=== PATIENT | male | born 1965 | race Caucasian/White ===

== ENCOUNTER 2016-08-09 14:24 | Observation (INO) | payer BC, OTHER ==
[2016-08-09 14:55] VITALS: BMI 36.4
--- NOTE | 2016-08-09 15:19 | PDOC ---
History of Present Illness - History of Present Illness Initial Comments: 08/09/16 16:19 The patient is a 51 year old male with a past medical hx of gout, left lung mass biopsy (2015) who presents to the ED from his PCP complaining of intermittent epigastric and lower chest pain for two days. The patient reports two episodes of associated shortness of breath. He describes the pain as a tightness and notes the pain lasts for 15 minutes. The patient denies any radiation of pain into his jaw, back, or arm. The patient is also complaining of a rash to his lower left back but denies any pain or tingling. The patient denies any nausea, vomiting, diarrhea The patient denies any fever, chills PCP: Dr. Larios Surgery: lower back surgery 2013 <Kaley Sanchez - Last Filed: 08/09/16 16:29> <Ellen Armenta - Last Filed: 08/09/16 17:28> - General Chief Complaint: Nausea/Vomiting Stated Complaint: PCP SENT FOR ADMIN Time Seen by Provider: 08/09/16 15:04 Past History <Kaley Sanchez - Last Filed: 08/09/16 16:29> - Past Medical History Anemia: No Asthma: No Cancer: No Cardiac Disorders: No CVA: No COPD: No CHF: No Dementia: No Diabetes: No GI Disorders: No Disorders: No HTN: No Hypercholesterolemia: No Liver Disease: No Seizures: No Thyroid Disease: No - Surgical History Abdominal Surgery: No Appendectomy: No Cardiac Surgery: No Cholecystectomy: No Lung Surgery: No Neurologic Surgery: Yes (HERNIATED DISC SX 2013) Orthopedic Surgery: No - Immunization History Immunization Up to Date: Yes - Psycho/Social/Smoking Cessation Hx Anxiety: No Suicidal Ideation: No Smoking Status: No Smoking History: Never smoked Have you smoked in the past 12 months: No Number of Cigarettes Smoked Daily: 0 Cigars Per Day: 0 Information on smoking cessation initiated: No Hx Alcohol Use: No Drug/Substance Use Hx: No Substance Use Type: None <Ellen Armenta - Last Filed: 08/09/16 17:28> - Past Medical History Allergies/Adverse Reactions: Allergies Allergy/AdvReac Type Severity Reaction Status Date / Time No Known Allergies Allergy Verified 08/09/16 14:55 Home Medications: Ambulatory Orders NK [No Known Home Medication] 08/09/16 Review of Systems - Review of Systems Able to Perform ROS?: Yes Comments:: 08/09/16 16:19 GENERAL/CONSTITUTIONAL: No: fever, chills, weakness, loss of appetite. HEAD, EYES, EARS, NOSE AND THROAT: No: change in vision, ear pain, discharge, sore throat, throat swelling. CARDIOVASCULAR: +Lower chest pain. No: lightheadedness, palpitations, syncope RESPIRATORY: No: cough, shortness of breath, wheezing, hemoptysis, stridor. GASTROINTESTINAL: +Epigastric pain. No: nausea, vomiting, diarrhea, rectal bleeding, constipation. GENITOURINARY: No: dysuria, hematuria, frequency, urgency, flank pain. MUSCULOSKELETAL: No: back pain, neck pain, jaw pain, arm pain, joint pain, muscle swelling or pain SKIN:+Rash to left lower back. No: lesions, pallor or easy bruising. NEUROLOGIC: No: headache, vertigo, paresthesias, weakness ENDOCRINE: No: unexplained weight gain or loss HEMATOLOGIC/LYMPHATIC: No: anemia, easy bleeding, swelling nodes <Kaley Sanchez - Last Filed: 08/09/16 16:29> *Physical Exam - Vital Signs Last Vital Signs Temp Pulse Resp BP Pulse Ox 84 18 150/92 100 08/09/16 14:52 08/09/16 14:52 08/09/16 14:52 08/09/16 14:52 - Physical Exam Comments: 08/09/16 16:20 GENERAL: The patient is in no acute distress. HEAD: Normal with no signs of trauma. EYES: PERRLA, EOMI, sclera anicteric, conjunctiva clear. ENT: Ears normal, nares patent, oropharynx clear without exudates. Moist mucous membranes. NECK: Normal range of motion, supple without lymphadenopathy, JVD, or masses. LUNGS: Breath sounds equal, clear to auscultation bilaterally. No wheezes, and no crackles. HEART:Regular rate and rhythm, normal S1 and S2 without murmur, rub or gallop. ABDOMEN: Soft, nontender, normoactive bowel sounds. No guarding, no rebound. EXTREMITIES: Normal range of motion, no edema. No clubbing or cyanosis. No erythema, or tenderness. NEUROLOGICAL: Cranial nerves II through XII grossly intact. Normal speech. No focal neurological deficits. MUSCULOSKELETAL: Back nontender to palpation, no CVA tenderness SKIN: +Erythematous macular lesions on the right lower back. Warm, Dry, normal turgor, no lesions noted. <Kaley Sanchez - Last Filed: 08/09/16 16:29> - Vital Signs Last Vital Signs Temp Pulse Resp BP Pulse Ox 84 18 150/92 100 08/09/16 14:52 08/09/16 14:52 08/09/16 14:52 08/09/16 14:52 <Ellen Armenta - Last Filed: 08/09/16 17:28> Heart Score/ECG Review - History History: Slightly suspicious - Electrocardiogram EKG: Non specific repolarization disturbance - Age Age: 45-65 #1 ECG reviewed & interpreted by me at: 15:18 08/09/16 15:18 Twelve-lead EKG was performed and reviewed by me. There is normal sinus rhythm with a normal rate of 94bpm. The axis is normal. The intervals are normal - pr: 162ms, QRS:100ms, QTc:425ms. J point elevation v2, v3. <Ellen Armenta - Last Filed: 08/09/16 17:28> ED Treatment Course - LABORATORY CBC & Chemistry Diagram: 08/09/16 15:15 08/09/16 15:15 - ADDITIONAL ORDERS Additional order review: Laboratory Results 08/09/16 08/09/16 08/09/16 15:15 15:15 15:15 INR 1.04 PTT (Actin FS) 33.5 Sodium 143 Potassium 4.2 Chloride 106 Carbon Dioxide 28 Anion Gap 9 BUN 14 Creatinine 1.1 Creat Clearance w eGFR > 60 Random Glucose 99 Calcium 8.8 Total Bilirubin 0.2 AST 18 ALT 30 Alkaline Phosphatase 111 Creatine Kinase 186 Creatine Kinase Index 1.5 CK-MB (CK-2) 2.828 CK-MB (CK-2) Rel Index Cancelled Troponin I < 0.02 Total Protein 6.9 Albumin 3.9 08/09/16 15:15 RBC 5.26 MCV 84.6 MCHC 34.4 RDW 13.6 MPV 8.6 Neutrophils % 62.5 Lymphocytes % 27.0 Monocytes % 7.5 Eosinophils % 2.2 Basophils % 0.8 - RADIOLOGY Radiograph Interpretation: 08/09/16 16:29 Chest X-Ray Single AP view of the chest reveals little change since the prior set 12/14/2015. There are clear lungs, semierect apical lordotic projection, normal mediastinum and sharp angles. The bones and soft tissues are intact. Impression: No acute pathology. No significant change. Reported By: Adrián Peña MD 08/09/16 1535 <Kaley Sanchez - Last Filed: 08/09/16 16:29> - LABORATORY CBC & Chemistry Diagram: 08/09/16 15:15 08/09/16 15:15 - RADIOLOGY Radiology Studies Ordered: Category Date Time Status EVETTE [CHEST X-RAY PORTABLE*] [RAD] Stat Radiology 08/09/16 15:04 Ordered <Ellen Armenta - Last Filed: 08/09/16 17:28> Medical Decision Making - Medical Decision Making 08/09/16 17:03 A portion of this note was documented by scribe services under my direction. I have reviewed the details of the note, within reason, and agree with the documentation with the following case summary and management plan written by me. Nursing documentation reviewed and incorporated into medical decision making This is a 51-year-old male who presents emergency Department with 2 episodes of chest tightness. 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 Symptoms lasted approximately 15 minutes and self resolved. Patient's denies exertional symptoms historically. No prior cardiac symptoms, cardiac work up. No diaphoresis. No nausea, no vomiting patient denies lower extremity edema. Patient was seen today by his primary care physician who referred him to the emergency department for observation admission for repeat troponins. Will do labs Will do chest x-ray Will reassess (pt has had no chest pain) 08/09/16 17:05 Laboratory Tests 08/09/16 08/09/16 08/09/16 15:15 15:15 15:15 WBC 9.8 Hgb 15.3 Hct 44.5 Plt Count 205 Neutrophils % 62.5 Lymphocytes % 27.0 INR 1.04 BUN 14 Creatinine 1.1 Creatine Kinase 186 Troponin I < 0.[address] Becerra Awaiting response Will place on observation 08/09/16 17:[address] Ace <Ellen Armenta - Last Filed: 08/09/16 17:28> *DC/Admit/Observation/Transfer - Attestations Scribe Attestion: 08/09/16 16:19 Documentation prepared by Kaley Sanchez, acting as medical numerical control operator for Ellen Armenta MD/DO. <Kaley Sanchez - Last Filed: 08/09/16 16:29> - Discharge Dispostion Admit: Yes Decision to Admit order Date/Time: 08/09/16 17:05 <Ellen Armenta - Last Filed: 08/09/16 17:28> Diagnosis at time of Disposition: Chest pain Qualifiers: Chest pain type: unspecified Qualified Code(s): R07.9 - Chest pain, unspecified - Discharge Dispostion Condition at time of disposition: Stable - Referrals Referrals: Sravanthi Terrazas MD [Primary Care Provider] -
[2016-08-09 15:28] LABS: BASOPHIL 0.8 % (0-2.0); EOSINOPHIL 2.2 % (0-4.5); MCH 29.1 pg (25.7-33.7); MCHC 34.4 g/dl (32.0-35.9); MEAN CELL VOLUME 84.6 fl (80-96); MEAN PLT VOLUME 8.6 fl (7.5-11.1); NEUTROPHILS 62.5 % (42.8-82.8); PLATELET COUNT 205 K/MM3 (134-434); RDW 13.6 % (11.9-15.9); WHITE BLOOD COUNT 9.8 K/mm3 (4.0-10.0)
[2016-08-09 15:44] LABS: INR 1.04 (0.82-1.09); PROTHROMBIN TIME (PATIENT) 11.5 SEC (9.98-11.88)
[2016-08-09 15:46] LABS: ACTIVATED PTT 33.5 SECONDS (26.9-34.4)
[2016-08-09 15:47] LABS: ALBUMIN 3.9 g/dl (3.4-5.0); ANION GAP 9 (8-16); BILIRUBIN,TOTAL 0.2 mg/dL (0.2-1.0); CALCIUM 8.8 mg/dL (8.5-10.1); CO2 28 mmol/L (21-32); CREATININE 1.1 mg/dL (0.7-1.3); GLUCOSE,RANDOM 99 mg/dL (74-106); SGPT/ALT 30 U/L (12-78); TOT PROT 6.9 g/dl (6.4-8.2)
[2016-08-09 15:50] LABS: ALK PHOS 111 U/L (45-117); SGOT/AST 18 U/L (15-37); TROPONIN I < 0.02 ng/ml (0.00-0.05)
[2016-08-09] MEDS ORDERED: ASPIRIN 81 MG CHEWABLE TABLETS PO ONE (18:05)
[2016-08-09] MEDS ORDERED: ACETAMINOPHEN 325 MG TABLET (FP) PO PRN (18:05)
[2016-08-09 20:42] LABS: TROPONIN I < 0.02 ng/ml (0.00-0.05)
[2016-08-09] MEDS: ATORVASTATIN CA 10 MG TABLET (FP) PO SCH (21:14)
[2016-08-09] MEDS: HEPARIN NA (PORCINE) 5,000 UNITS/ML 1ML VIAL SQ SCH (21:14)
[2016-08-10 07:02] LABS: MCH 28.9 pg (25.7-33.7); MCHC 33.9 g/dl (32.0-35.9); MEAN CELL VOLUME 85.2 fl (80-96); MEAN PLT VOLUME 8.6 fl (7.5-11.1); PLATELET COUNT 209 K/MM3 (134-434); RDW 13.9 % (11.9-15.9); WHITE BLOOD COUNT 7.9 K/mm3 (4.0-10.0)
[2016-08-10 07:20] LABS: ALBUMIN 3.9 g/dl (3.4-5.0); ALK PHOS 96 U/L (45-117); ANION GAP 5 (8-16); BILIRUBIN,TOTAL 0.4 mg/dL (0.2-1.0); CALCIUM 8.8 mg/dL (8.5-10.1); CHOLESTEROL 184 mg/dL (50-200); CO2 34 mmol/L (21-32); GLUCOSE,RANDOM 103 mg/dL (74-106); LDL CHOLESTEROL (ONLY SJRH) 120 mg/dL (5-100); SGOT/AST 18 U/L (15-37); SGPT/ALT 29 U/L (12-78)
[2016-08-10] MEDS: HEPARIN NA (PORCINE) 5,000 UNITS/ML 1ML VIAL SQ SCH ×2 (09:41→21:46)
[2016-08-10] MEDS: ASPIRIN 81 MG CHEWABLE TABLETS PO SCH (09:41)
--- NOTE | 2016-08-10 11:13 | HP ---
Admitting History and Physical - Primary Care Physician PCP: Shari Larios - Admission Chief Complaint: CHEST PAIN/DYSPNEA History of Present Illness: The patient is a 51 year old male with a past medical hx of gout, left lung mass biopsy (2015) who presents to the ED from his PCP complaining of intermittent epigastric and lower chest pain for two days. The patient reports two episodes of associated shortness of breath. He describes the pain as a tightness and notes the pain lasts for 15 minutes. The patient denies any radiation of pain into his jaw, back, or arm. The patient is also complaining of a rash to his lower left back but denies any pain or tingling. The patient denies any nausea, vomiting, diarrhea The patient denies any fever, chills PCP: Dr. Larios Surgery: lower back surgery 2013 History Source: Patient - Smoking History Smoking history: Never smoked Have you smoked in the past 12 months: No Aproximately how many cigarettes per day: 0 - Alcohol/Substance Use Hx Alcohol Use: No Home Medications - Allergies Allergies/Adverse Reactions: Allergies Allergy/AdvReac Type Severity Reaction Status Date / Time No Known Allergies Allergy Verified 08/09/16 14:55 - Home Medications Home Medications: Ambulatory Orders NK [No Known Home Medication] 08/09/16 Review of Systems - Review of Systems Constitutional: reports: No Symptoms Eyes: reports: No Symptoms HENT: reports: No Symptoms Neck: reports: No Symptoms Cardiovascular: reports: Chest Pain, Shortness of Breath Respiratory: reports: SOB, Wheezing Gastrointestinal: reports: No Symptoms Genitourinary: reports: No Symptoms Breasts: reports: No Symptoms Reported Musculoskeletal: reports: No Symptoms Integumentary: reports: No Symptoms Neurological: reports: No Symptoms Endocrine: reports: No Symptoms Hematology/Lymphatic: reports: No Symptoms Psychiatric: reports: No Symptoms Physical Examination Vital Signs: Vital Signs Temperature 97.5 F L 08/10/16 06:00 Pulse Rate 70 08/10/16 06:00 Respiratory Rate 18 08/10/16 06:00 Blood Pressure 135/91 08/10/16 06:00 O2 Sat by Pulse Oximetry (%) 96 08/10/16 02:04 Constitutional: Yes: Mild Distress Eyes: Yes: WNL HENT: Yes: WNL Neck: Yes: WNL Cardiovascular: Yes: WNL Respiratory: Yes: WNL Gastrointestinal: Yes: WNL Renal/: Yes: WNL Musculoskeletal: Yes: WNL Extremities: Yes: WNL Edema: No Peripheral Pulses WNL: Yes Integumentary: Yes: WNL Wound/Incision: Yes: Clean/Dry Neurological: Yes: WNL ...Motor Strength: WNL Psychiatric: Yes: WNL Labs: CBC, BMP 08/10/16 05:55 08/10/16 05:55 Problem List - Problems (1) Chest pain Code(s): R07.9 - CHEST PAIN, UNSPECIFIED Qualifiers: Chest pain type: unspecified Qualified Code(s): R07.9 - Chest pain, unspecified Assessment/Plan ACUTE CORONARY SYNDROME RULE OUT TELEMETRY OBSERVATION STATUS PER EHR CARDIOLOGY FOR STRESS TEST/ECHO RISK FACTORS DISCUSSED WITH PATIENT
--- NOTE | 2016-08-10 15:26 | CON.CARD ---
Consult Consult Specialty:: Cardiology Referred by:: Dr. Larios Reason for Consultation:: Cardiac evaluation - History of Present Illness Chief Complaint: Chest pain History of Present Illness: Patient is a 51 year old male with recent history of pneumonia which was treated no presents from PMD office for further work up of chest discomfort in the mid-sternum and epigastrium. He has history of gout and had lung biopsy to rule out malignancy (found with pneumonia and no evidence of malignancy). He also complained of shortness of breath. He denies palpitations. He denies paroxysmal nocturnal dyspnea or orthopnea. He denies fever or chills. He denies cough or expectoration. He denies headache or lightheadedness. He states chest discomfort lasted approximately 15 minutes. 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 Cardiology consultation was called for further evaluation. - History Source History Provided By: Patient, Medical Record Limitations to Obtaining History: No Limitations - Past Medical History Pulmonary: Yes: Pneumonia Rheumatology: Yes: Gout - Alcohol/Substance Use Hx Alcohol Use: No - Smoking History Smoking history: Never smoked Have you smoked in the past 12 months: No Aproximately how many cigarettes per day: 0 Home Medications - Allergies Allergies/Adverse Reactions: Allergies Allergy/AdvReac Type Severity Reaction Status Date / Time No Known Allergies Allergy Verified 08/09/16 14:55 - Home Medications Home Medications: Ambulatory Orders NK [No Known Home Medication] 08/09/16 Review of Systems - Review of Systems Constitutional: denies: Chills, Fever Cardiovascular: reports: Chest Pain, Shortness of Breath. denies: Palpitations Respiratory: reports: SOB. denies: Cough, Hemoptysis, Orthopnea, PND Gastrointestinal: denies: Abdominal Pain, Constipation, Diarrhea, Melena, Nausea , Rectal Bleeding, Vomiting Genitourinary: denies: Dysuria Neurological: denies: Dizziness, Headache, Numbness, Seizure, Syncope Vital Signs: Vital Signs Temperature 98.0 F 08/10/16 14:00 Pulse Rate 78 08/10/16 14:00 Respiratory Rate 20 08/10/16 14:00 Blood Pressure 125/61 08/10/16 14:00 O2 Sat by Pulse Oximetry (%) 96 08/10/16 10:00 Neck: Yes: Supple Respiratory: Yes: CTA Bilaterally Gastrointestinal: Yes: Normal Bowel Sounds, Soft. No: Tenderness Cardiovascular: Yes: Regular Rate and Rhythm JVD: No Carotid Bruit: No PMI: Non-Displaced Heart Sounds: Yes: S1, S2 Edema: No - Other Data Labs, Other Data: CBC, BMP 08/10/16 05:55 08/10/16 05:55 INR, PTT INR 1.04 (0.82-1.09) 08/09/16 15:15 Troponin, BNP 08/09/16 19:50 Troponin I < 0.02 Laboratory Results - last 24 hr 08/09/16 08/09/16 08/09/16 15:15 15:15 15:15 WBC 9.8 RBC 5.26 Hgb 15.3 Hct 44.5 MCV 84.6 MCHC 34.4 RDW 13.6 Plt Count 205 MPV 8.6 Neutrophils % 62.5 Lymphocytes % 27.0 Monocytes % 7.5 Eosinophils % 2.2 Basophils % 0.8 INR 1.04 PTT (Actin FS) 33.5 Sodium 143 Potassium 4.2 Chloride 106 Carbon Dioxide 28 Anion Gap 9 BUN 14 Creatinine 1.1 Creat Clearance w eGFR > 60 Random Glucose 99 Hemoglobin A1c % Calcium 8.8 Total Bilirubin 0.2 AST 18 ALT 30 Alkaline Phosphatase 111 Creatine Kinase 186 Creatine Kinase Index 1.5 CK-MB (CK-2) 2.828 CK-MB (CK-2) Rel Index Troponin I < 0.02 Total Protein 6.9 Albumin 3.9 Triglycerides Cholesterol Total LDL Cholesterol HDL Cholesterol 08/10/16 08/10/16 08/10/16 05:55 05:55 05:55 WBC 7.9 RBC 5.42 Hgb 15.7 Hct 46.2 MCV 85.2 MCHC 33.9 RDW 13.9 Plt Count 209 MPV 8.6 Neutrophils % Lymphocytes % Monocytes % Eosinophils % Basophils % INR PTT (Actin FS) Sodium 144 Potassium 4.8 Chloride 105 Carbon Dioxide 34 H D Anion Gap 5 L BUN 13 Creatinine 1.0 Creat Clearance w eGFR > 60 Random Glucose 103 Hemoglobin A1c % 5.9 Calcium 8.8 Total Bilirubin 0.4 D AST 18 ALT 29 Alkaline Phosphatase 96 Creatine Kinase Creatine Kinase Index CK-MB (CK-2) CK-MB (CK-2) Rel Index Troponin I Total Protein 7.0 Albumin 3.9 Triglycerides 111 Cholesterol 184 Total LDL Cholesterol 120 H HDL Cholesterol 57 Sinus rhythm Imaging - Results Chest X-ray: Report Reviewed (Unremarkable) EKG: Report Reviewed Problem List - Problems (1) Chest pain Code(s): R07.9 - CHEST PAIN, UNSPECIFIED Qualifiers: Chest pain type: unspecified Qualified Code(s): R07.9 - Chest pain, unspecified (2) Gout Code(s): M10.9 - GOUT, UNSPECIFIED Qualifiers: Gout site: toe Gout etiology: unspecified cause Laterality: unspecified laterality Chronicity: chronic Presence of tophus: without tophus Qualified Code(s): M1A.9XX0 - Chronic gout, unspecified, without tophus (tophi) (3) Hypercholesterolemia Code(s): E78.0 - PURE HYPERCHOLESTEROLEMIA * DO NOT USE * Assessment/Plan 1. Chest pain syndrome and shortness of breath, rule out CAD 2. History of gout 3. History of pneumonia 4. Hypercholesterolemia PLAN: 1. 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 Transthoracic echocardiography to assess LV and valvular function 3. ASA 4. Statin therapy Further plans are to follow José Miguel Jordan MD
[2016-08-10] MEDS ORDERED: SODIUM CHLORIDE NASAL SPRAY 44 ML BOTTLE NS PRN (17:06)
[2016-08-10] MEDS ORDERED: ARTIFICIAL TEARS (POLYVINYL ALCOHOL 1.4%) OPTH DROPS OU PRN (17:06)
--- NOTE | 2016-08-10 20:27 | EKG ---
Test Reason : Blood Pressure : / mmHG Vent. Rate : 094 BPM Atrial Rate : 094 BPM P-R Int : 162 ms QRS Dur : 100 ms QT Int : 340 ms P-R-T Axes : 055 061 003 degrees QTc Int : 425 ms NORMAL SINUS RHYTHM CANNOT RULE OUT ANTERIOR INFARCT , AGE UNDETERMINED NONSPECIFIC T WAVE ABNORMALITY ABNORMAL ECG NO PREVIOUS ECGS AVAILABLE Confirmed by CALEB JIMENEZ MD ([id number]) on 08/10/2016 8:27:03 PM Referred By: Confirmed By:CALEB JIMENEZ MD
[2016-08-10] MEDS: ATORVASTATIN CA 10 MG TABLET (FP) PO SCH (21:46)
--- NOTE | 2016-08-11 07:58 | PN ---
Progress Note, Physician History of Present Illness: no cp this am - Current Medication List Current Medications: Active Medications Acetaminophen (Tylenol -) 650 mg PO Q6H PRN PRN Reason: FEVER OR PAIN Artificial Tears (Artificial Tears) 1 drop OU BID PRN PRN Reason: DRY EYES Aspirin (Asa -) 81 mg PO DAILY [facility] Last Admin: 08/10/16 09:41 Dose: 81 mg Atorvastatin Calcium (Lipitor -) 10 mg PO HS [facility] Last Admin: 08/10/16 21:46 Dose: 10 mg Heparin Sodium (Porcine) (Heparin -) 5,000 unit SQ BID [facility] Last Admin: 08/10/16 21:46 Dose: 5,000 unit Sodium Chloride ([place] Nasal [place] -) 3 spray NS TID PRN PRN Reason: NASAL CONGESTION - Objective Vital Signs: Vital Signs Temperature 97.6 F 08/11/16 06:00 Pulse Rate 79 08/11/16 06:00 Respiratory Rate 18 08/11/16 06:00 Blood Pressure 154/80 08/11/16 06:00 O2 Sat by Pulse Oximetry (%) 97 08/10/16 22:00 Cardiovascular: Yes: Regular Rate and Rhythm Respiratory: Yes: Regular, CTA Bilaterally Gastrointestinal: Yes: Normal Bowel Sounds, Soft Edema: No Labs: CBC, BMP 08/10/16 05:55 08/10/16 05:55 INR, PTT INR 1.04 (0.82-1.09) 08/09/16 15:15 Problem List - Problems (1) Chest pain Assessment/Plan: ECHO STRESS TEST Code(s): R07.9 - CHEST PAIN, UNSPECIFIED Qualifiers: Chest pain type: unspecified Qualified Code(s): R07.9 - Chest pain, unspecified (2) Gout Assessment/Plan: ASYMPTOMATIC Code(s): M10.9 - GOUT, UNSPECIFIED Qualifiers: Gout site: toe Gout etiology: unspecified cause Laterality: unspecified laterality Chronicity: chronic Presence of tophus: without tophus Qualified Code(s): M1A.9XX0 - Chronic gout, unspecified, without tophus (tophi) (3) Hypercholesterolemia Assessment/Plan: ON LIPITOR 10 Code(s): E78.0 - PURE HYPERCHOLESTEROLEMIA * DO NOT USE *
[2016-08-11] MEDS: HEPARIN NA (PORCINE) 5,000 UNITS/ML 1ML VIAL SQ SCH (10:20)
--- NOTE | 2016-08-11 13:12 | PN ---
Progress Note, Physician Chief Complaint: Not in distress History of Present Illness: Patient was seen and examined. Awake and alert. Chart was reviewed Denies chest pain, SOB or palpitation - Current Medication List Current Medications: Active Medications Acetaminophen (Tylenol -) 650 mg PO Q6H PRN PRN Reason: FEVER OR PAIN Artificial Tears (Artificial Tears) 1 drop OU BID PRN PRN Reason: DRY EYES Aspirin (Asa -) 81 mg PO DAILY [facility] Last Admin: 08/10/16 09:41 Dose: 81 mg Atorvastatin Calcium (Lipitor -) 10 mg PO HS [facility] Last Admin: 08/10/16 21:46 Dose: 10 mg Heparin Sodium (Porcine) (Heparin -) 5,000 unit SQ BID [facility] Last Admin: 08/10/16 21:46 Dose: 5,000 unit Sodium Chloride ([place] Nasal [place] -) 3 spray NS TID PRN PRN Reason: NASAL CONGESTION - Objective Vital Signs: Vital Signs Temperature 97.3 F L 08/11/16 10:00 Pulse Rate 68 08/11/16 10:00 Respiratory Rate 18 08/11/16 10:00 Blood Pressure 132/76 08/11/16 10:00 O2 Sat by Pulse Oximetry (%) 97 08/10/16 22:00 Neck: Yes: Supple Cardiovascular: Yes: Regular Rate and Rhythm, S1, S2 Respiratory: Yes: CTA Bilaterally Gastrointestinal: Yes: Normal Bowel Sounds, Soft. No: Tenderness Edema: No Additional Findings/Remarks: - Review of Systems Constitutional: denies: Chills, Fever Cardiovascular: reports: Chest Pain, Shortness of Breath. denies: Palpitations Respiratory: reports: SOB. denies: Cough, Hemoptysis, Orthopnea, PND Gastrointestinal: denies: Abdominal Pain, Constipation, Diarrhea, Melena, Nausea , Rectal Bleeding, Vomiting Genitourinary: denies: Dysuria Neurological: denies: Dizziness, Headache, Numbness, Seizure, Syncope Labs: CBC, BMP 08/10/16 05:55 08/10/16 05:55 INR, PTT INR 1.04 (0.82-1.09) 08/09/16 15:15 Problem List - Problems (1) Chest pain Code(s): R07.9 - CHEST PAIN, UNSPECIFIED Qualifiers: Chest pain type: unspecified Qualified Code(s): R07.9 - Chest pain, unspecified (2) Gout Code(s): M10.9 - GOUT, UNSPECIFIED Qualifiers: Gout site: toe Gout etiology: unspecified cause Laterality: unspecified laterality Chronicity: chronic Presence of tophus: without tophus Qualified Code(s): M1A.9XX0 - Chronic gout, unspecified, without tophus (tophi) (3) Hypercholesterolemia Code(s): E78.0 - PURE HYPERCHOLESTEROLEMIA * DO NOT USE * Assessment/Plan 1. Chest pain syndrome and shortness of breath, rule out CAD 2. History of gout 3. History of pneumonia 4. Hypercholesterolemia PLAN: 1. 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 Transthoracic echocardiography to assess LV and valvular function 3. ASA 4. Statin therapy Further plans are to follow José Miguel Jordan MD
[2016-08-11] MEDS: ASPIRIN 81 MG CHEWABLE TABLETS PO SCH (14:20)
[2016-08-11 14:55] VITALS: BP 138/63; PULSE 79; TEMP 98.1
[2016-08-11] MEDS ORDERED: PT OWN MED DRAWER 7, Y5N ONE (17:12)
== END 2016-08-11 19:30 | disposition home or self-care (01) ==
LOC: JER 14:24 → SUPCPDRO 14:24 → JERBED 17:05 → UNDOADMOB 17:12 → J4S 18:56
PROVIDERS: ADMIT Family Medicine; ATTEND Family Medicine
DX: R07.89 Other chest pain (principal); M10.9 Gout, unspecified; E78.00 Pure hypercholesterolemia, unspecified
CPT/HCPCS: 36415; 71010-TC; 78452-TC; 80053; 80061; 82550; 82553; 83036; 83721; 84484; 85025; 85027; 85610; 85730; 93005; 93010; 93017; 93306-TC; 99283-25; A9502; C1887; G0378; J1644

== ENCOUNTER 2016-10-03 18:23 | Emergency (ER) | payer OTHER ==
[2016-10-03 18:29] VITALS: BP 152/111; PULSE 85; TEMP 98.1; BMI 36.9
--- NOTE | 2016-10-03 19:09 | PDOC ---
History of Present Illness - General Chief Complaint: Poison Ostrander,Poison Diane Exposure Stated Complaint: ALLERGIC REACTION/RASH Time Seen by Provider: 10/03/16 19:07 History Source: Patient Exam Limitations: No Limitations - History of Present Illness Initial Comments: CHIEF COMPLAINT: 51 y/o afebrile male with PMH HLD c/o itchy rash since planting trees 2 days ago. HISTORY OF PRESENT ILLNESS: He states after replanting some trees he developed an itchy red rash to face and hands that is now spreading. He has been trying not to scratch it. He denies f/c, n/v/d, cough, swelling to lips or tongue, feeling of throat closing, worse itching at night, itching in between his fingers, recent hotel stays, recent animal bites. He noted his BP is high in the ER and denies CARVAJAL, changes in vision/hearing, palpitations, dizziness, CP, SOB. Vital signs on arrival are notable for BP of 152/111. REVIEW OF SYSTEMS: GENERAL/CONSTITUTIONAL: No fever/chills. No weakness. No weight change. HEAD, EYES, EARS, NOSE AND THROAT: No change in vision. No ear pain or discharge. No sore throat. MUSCULOSKELETAL: No joint or muscle swelling or pain. No neck or back pain. SKIN: +Rash to face, neck and hands. NEUROLOGIC: No headache, vertigo, loss of consciousness, or loss of sensation. PHYSICAL EXAM: GENERAL: The patient is awake, alert, and fully oriented, in no acute distress. HEAD: Normal with no signs of trauma. EYES: Pupils equal, round and reactive to light, extraocular movements intact, sclera anicteric, conjunctiva clear. FACE: No swelling to face, lips or tongue. Airway patent. EXTREMITIES: Normal range of motion, no edema. NEUROLOGICAL: Normal speech, normal gait. SKIN: Slightly rashed erythematous patches in linear pattern to right side of face, right side of neck, b/l dorsal hands, and b/l forearms. Rash has intermittent papules noted. No lesions in between digits or in flexor surfaces of arms. Past History - Past Medical History Allergies/Adverse Reactions: Allergies Allergy/AdvReac Type Severity Reaction Status Date / Time No Known Allergies Allergy Verified 10/03/16 18:26 Home Medications: Ambulatory Orders Aspirin [ASA -] 81 mg PO DAILY tab.chew 08/11/16 Atorvastatin Ca [Lipitor] 10 mg PO HS #30 tablet 08/11/16 Prednisone [Deltasone -] 60 mg PO DAILY #12 tablet 10/03/16 Anemia: No Asthma: No Cancer: No Cardiac Disorders: No CVA: No COPD: No CHF: No Dementia: No Diabetes: No GI Disorders: No Disorders: No HTN: No Hypercholesterolemia: No Liver Disease: No Seizures: No Thyroid Disease: No - Surgical History Abdominal Surgery: No Appendectomy: No Cardiac Surgery: No Cholecystectomy: No Lung Surgery: No Neurologic Surgery: Yes (HERNIATED DISC SX 2014) Orthopedic Surgery: No - Immunization History Immunization Up to Date: Yes - Psycho/Social/Smoking Cessation Hx Anxiety: No Suicidal Ideation: No Smoking Status: No Smoking History: Never smoked Have you smoked in the past 12 months: No Number of Cigarettes Smoked Daily: 0 Cigars Per Day: 0 Information on smoking cessation initiated: No Hx Alcohol Use: No Drug/Substance Use Hx: No Substance Use Type: None *Physical Exam - Vital Signs Last Vital Signs Temp Pulse Resp BP Pulse Ox 98.1 F 85 18 152/111 97 10/03/16 18:26 10/03/16 18:26 10/03/16 18:26 10/03/16 18:26 10/03/16 18:26 Medical Decision Making - Medical Decision Making A/P: 51 y/o male with poison diane rash. Plan is to give IM decadron in the ER and discharge to home with 4 day course of prednisone. Instructed him to try to avoid scratching area, take oatmeal baths and f/u with PCP to have his BP rechecked. The patient was instructed to return to the ER with any worsening or concerning symptoms. The patient verbalizes understanding of all instructions, has no further questions and is awaiting discharge. *DC/Admit/Observation/Transfer Diagnosis at time of Disposition: Poison diane - Discharge Dispostion Disposition: HOME Condition at time of disposition: Good - Prescriptions Prescriptions: Prednisone [Deltasone -] 60 mg PO DAILY #12 tablet - Referrals Referrals: Sravanthi Terrazas MD [Primary Care Provider] - - Patient Instructions Printed Discharge Instructions: DI for Poison Diane Allergy, DI for Poison Ostrander Allergy Additional Instructions: Discharge Instructions: -Take prednisone as prescribed for symptoms -Try to avoid scratching the affected areas -Take oatmeal baths to soothe the itch -Follow up with Dr. Terrazas for blood pressure check -Return to the ER with any worsening or concerning symptoms.
[2016-10-03] MEDS ORDERED: DEXAMETHASONE SOD PHOSPHATE 10 MG/1 ML VIAL IM ONE (19:14)
[2016-10-03] MEDS ORDERED: DEXAMETHASONE SOD PHOSPHATE 10 MG/1 ML VIAL ONE (19:18)
== END 2016-10-03 19:40 | disposition home or self-care (01) ==
LOC: JERFT 18:23
PROC: 3E033GC Introduction of Other Therapeutic Substance into Peripheral Vein, Percutaneous Approach (ICD-10-PCS; principal; 2016-10-03)
DX: L23.7 Allergic contact dermatitis due to plants, except food (principal)
CPT/HCPCS: 99281-25

== ENCOUNTER 2017-02-09 10:47 | Emergency (ER) | payer OTHER ==
[2017-02-09 10:51] VITALS: BP 124/79; PULSE 99; TEMP 98; BMI 34.8
--- NOTE | 2017-02-09 11:18 | PDOC ---
History of Present Illness - General Chief Complaint: Respiratory Stated Complaint: COUGH Time Seen by Provider: 02/09/17 11:14 History Source: Patient Exam Limitations: No Limitations - History of Present Illness Initial Comments: 02/09/17 12:36 CHIEF COMPLAINT: Worsening cough HISTORY OF PRESENT ILLNESS: He is a 52-year-old male with a history of organ denies pneumonia, gout and hyperlipidemia here today complaining of worsening productive cough for approximately one any half weeks. Patient reports that he was treated with Ceftin for 7 days finished yesterday as prescribed by his primary care doctor Dr. Terrazas. Pt. initally had a fever. Patient reports that cough is persistent especially at night. Patient denies any shortness of breath or any wheezing. Patient reports having intermittent upper back pain more on right side and right lateral chest discomfort intermittently. Patient reports that he had an seeing a stockroom keeper Dr. Montes De Oca and had been on antibiotics last year for 4 months and prednisone 5 months and was taken off of it an January 2016. Patient reports that he has been using Pro Air intermittently that helps relieve the cough temporarily. Also complaining of irritation and tenderness of right external ear canal for the last 2 weeks. 02/09/17 13:03 02/09/17 13:03 Timing/Duration: getting worse Severity: mild Associated Symptoms: reports: cough (white foamy thick productive cough ), other (productive cough ) Past History - Past Medical History Allergies/Adverse Reactions: Allergies Allergy/AdvReac Type Severity Reaction Status Date / Time No Known Allergies Allergy Verified 02/09/17 10:48 Home Medications: Ambulatory Orders Aspirin [ASA -] 81 mg PO DAILY tab.chew 08/11/16 Atorvastatin Ca [Lipitor] 10 mg PO HS #30 tablet 08/11/16 Levofloxacin [Levaquin] 750 mg PO DAILY #5 tablet 02/09/17 Ofloxacin Otic [Floxin Otic -] 10 drop OT DAILY #1 drops 02/09/17 Prednisone [Deltasone] 40 mg PO DAILY #8 tablet 02/09/17 Promethazine HCl/Codeine [Prometh-Codein 6.25-10 mg/5 ml] 5 ml PO Q6H PRN #2 oz MDD 4 02/09/17 Anemia: No Asthma: No Cancer: No Cardiac Disorders: No CVA: No COPD: No CHF: No Dementia: No Diabetes: No GI Disorders: No Disorders: No HTN: No Hypercholesterolemia: No Liver Disease: No Seizures: No Thyroid Disease: No - Surgical History Abdominal Surgery: No Appendectomy: No Cardiac Surgery: No Cholecystectomy: No Lung Surgery: No Neurologic Surgery: Yes (HERNIATED DISC SX 2014) Orthopedic Surgery: No - Immunization History Immunization Up to Date: Yes - Psycho/Social/Smoking Cessation Hx Anxiety: No Suicidal Ideation: No Smoking Status: No Smoking History: Never smoked Have you smoked in the past 12 months: No Number of Cigarettes Smoked Daily: 0 Cigars Per Day: 0 Information on smoking cessation initiated: No Hx Alcohol Use: No Drug/Substance Use Hx: No Substance Use Type: None Review of Systems - Review of Systems Able to Perform ROS?: Yes Constitutional: No: Symptoms Reported HEENTM: Yes: Ear Pain (rt. external ear canal for 2 wees ), Other (sneezing ) Respiratory: Yes: Productive cough (white foamy thick last 3-4 days ). No: Orthopnea, Shortness of Breath, SOB with Exertion, SOB at Rest, Stridor, Wheezing, Hemoptysis Cardiac (ROS): Yes: Chest Pain (right lateral chest wall intermittent) : No: Symptoms Reported Musculoskeletal: Yes: Back Pain (b/l upper back discomfort intermittently ) Integumentary: No: Symptoms Reported Neurological: No: Symptoms reported *Physical Exam - Vital Signs Last Vital Signs Temp Pulse Resp BP Pulse Ox 98.0 F 99 H 18 124/79 97 02/09/17 10:49 02/09/17 10:49 02/09/17 10:49 02/09/17 10:49 02/09/17 10:49 - Physical Exam General Appearance: Yes: Appropriately Dressed HEENT: positive: TMs Normal, Pharyngeal Erythema, Other (rt. external ear canal erythema, minimal edema, tender ). negative: Tonsillar Exudate, Tonsillar Erythema, Nasal Congestion, Rhinorrhea, Sinus Tenderness Neck: negative: Lymphadenopathy (R), Lymphadenopathy (L) Respiratory/Chest: positive: Lungs Clear, Normal Breath Sounds. negative: Chest Tender, Respiratory Distress, Accessory Muscle Use, Labored Respiration, Rapid RR, Paradoxal Breathing, Crackles, Rales, Rhonchi, Stridor, Wheezing Cardiovascular: positive: Regular Rhythm, Regular Rate, S1, S2 Integumentary: positive: Normal Color Neurologic: positive: Alert, Normal Response, Responsive Medical Decision Making - Medical Decision Making 02/09/17 12:36 02/09/17 12:39 He is a 52-year-old male with a history of organ denies pneumonia, gout and hyperlipidemia here today complaining of worsening productive cough for approximately one any half weeks. Patient reports that he was treated with Ceftin for 7 days finished yesterday as prescribed by his primary care doctor Dr. Terrazas. Pt. initally had a fever. Patient reports that cough is persistent especially at night. Patient denies any shortness of breath or any wheezing. Patient reports having intermittent upper back pain more on right side and right lateral chest discomfort intermittently. Patient reports that he had an seeing a stockroom keeper Dr. Montes De Oca and had been on antibiotics last year for 4 months and prednisone 5 months and was taken off of it an January 2016. Patient reports that he has been using Pro Air intermittently that helps relieve the cough temporarily. R/O recurrent pneumonia Bronchitis otitis external rt. PLAN: Xray chest PA/lateral no acute pathology per Dr. Peña Follow with Dr. MONTES DE OCA he recommended starting the patient on prednisone 40 mg daily 5 days and Levaquin 750 mg 5 days Ofloxacin 0.3% otic drops 10 drops rt. ear for 7 days Promethazine/codeine 5 ml q6h prn severe cough # 2 oz Follow up with PCP 02/09/17 13:04 02/09/17 13:05 *DC/Admit/Observation/Transfer Diagnosis at time of Disposition: Bronchitis Otitis externa of right ear Qualifiers: Otitis externa type: unspecified type Chronicity: acute Qualified Code(s): H60.501 - Unspecified acute noninfective otitis externa, right ear - Discharge Dispostion Disposition: HOME Condition at time of disposition: Stable - Prescriptions Prescriptions: Prednisone [Deltasone] 40 mg PO DAILY #8 tablet Ofloxacin Otic [Floxin Otic -] 10 drop OT DAILY #1 drops Levofloxacin [Levaquin] 750 mg PO DAILY #5 tablet Promethazine HCl/Codeine [Prometh-Codein 6.25-10 mg/5 ml] 5 ml PO Q6H PRN #2 oz MDD 4 PRN Reason: Cough - Referrals Referrals: Sravanthi Terrazas MD [Primary Care Provider] - - Patient Instructions Additional Instructions: Drink a lot a fluids and rest Follow-up with your primary care provider within the next few days Use your pro-air pump as previously ordered Return to emergency room if symptoms worsen any difficulty breathing Patient voiced understanding of discharge instructions and all questions were answered
[2017-02-09] MEDS ORDERED: predniSONE 20 MG TABLET (UD) PO ONE (11:59)
[2017-02-09] MEDS ORDERED: predniSONE 20 MG TABLET (UD) ONE (12:09)
== END 2017-02-09 13:05 | disposition home or self-care (01) ==
LOC: JERFT 10:47
DX: J40 Bronchitis, not specified as acute or chronic (principal); H60.501 Unspecified acute noninfective otitis externa, right ear
CPT/HCPCS: 71020-TC; 99281-25

== ENCOUNTER 2019-03-06 22:18 | Emergency (ER) | payer OTHER ==
[2019-03-06 22:33] VITALS: BP 151/82; PULSE 92; TEMP 98.3; BMI 36.2
--- NOTE | 2019-03-06 23:01 | PDOC ---
History of Present Illness - General Chief Complaint: Cold Symptoms Stated Complaint: COUGH/BURING IN CHEST AND THROAT - History of Present Illness Initial Comments: 03/06/19 22:56 Patient is 54 year old male with no pmhx c/o URI symptoms x 3 days. Patient states dry cough, nose clogged, right ear pain, chest hurt/burning from coughing , throat irritated and sore. He took erythromycin 3 pills, Robitussin and water without relief. 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 Patient denies any fever, chills, nausea, vomiting. PMD: Anabbi PMHX: neg PSOCHX: neg cig, drug, etoh ALL: NKDA GENERAL/CONSTITUTIONAL: No fever or chills. No weakness. No weight change. HEAD, EYES, EARS, NOSE AND THROAT: No change in vision. (+) ear pain (-) discharge. (+) sore throat. CARDIOVASCULAR: No chest pain or shortness of breath. RESPIRATORY: (+) cough, (-) wheezing, or hemoptysis. GASTROINTESTINAL: No nausea, vomiting, diarrhea or constipation. No rectal bleeding. GENITOURINARY: No dysuria, frequency, or change in urination. MUSCULOSKELETAL: No joint or muscle swelling or pain. No neck or back pain. SKIN AND BREASTS: No rash or easy bruising. NEUROLOGIC: No headache, vertigo, loss of consciousness, or loss of sensation. PSYCHIATRIC: No depression or anxiety. ENDOCRINE: No increased thirst. No abnormal weight change. HEMATOLOGIC/LYMPHATIC: No anemia, easy bleeding, or history of blood clots. ALLERGIC/IMMUNOLOGIC: No hives or skin allergy. No latex allergy. GENERAL: The patient is awake, alert, and fully oriented, in no acute distress. HEAD: Normal with no signs of trauma. EYES: Pupils equal, round and reactive to light, extraocular movements intact, sclera anicteric, conjunctiva clear. ENT: Ears normal, nares patent, oropharynx clear without exudates. Moist mucous membranes. NECK: Normal range of motion, supple without lymphadenopathy, JVD, or masses. LUNGS: Breath sounds equal, clear to auscultation bilaterally. No wheezes, and no crackles. HEART: Regular rate and rhythm, normal S1 and S2 without murmur, rub. ABDOMEN: Soft, nontender, normoactive bowel sounds. No guarding, no rebound. No masses. EXTREMITIES: Normal range of motion, no edema. No clubbing or cyanosis. No cords, erythema, or tenderness. NEUROLOGICAL: Cranial nerves II through XII grossly intact. Normal speech, normal gait. PSYCH: Normal mood, normal affect. SKIN: Warm, Dry, normal turgor, no rashes or lesions noted. Past History - Travel Traveled outside of the country in the last 30 days: No - Past Medical History Allergies/Adverse Reactions: Allergies Allergy/AdvReac Type Severity Reaction Status Date / Time No Known Allergies Allergy Verified 02/09/17 10:48 Home Medications: Ambulatory Orders Aspirin [ASA -] 81 mg PO DAILY tab.chew 08/11/16 Atorvastatin Ca [Lipitor] 10 mg PO HS #30 tablet 08/11/16 Levofloxacin [Levaquin] 750 mg PO DAILY #5 tablet 02/09/17 Ofloxacin Otic [Floxin Otic -] 10 drop OT DAILY #1 drops 02/09/17 Prednisone [Deltasone] 40 mg PO DAILY #8 tablet 02/09/17 Promethazine HCl/Codeine [Prometh-Codein 6.25-10 mg/5 ml] 5 ml PO Q6H PRN #2 oz MDD 4 02/09/17 Albuterol Sulfate Inhaler - [Ventolin HFA Inhaler -] 2 inh PO Q4H #1 inh Cetirizine HCl [Zyrtec -] 10 mg PO DAILY #30 tablet 03/07/19 Pseudoephedrine HCl [Sudafed] 30 mg PO QID #20 tablet 03/07/19 Anemia: No Asthma: No Cancer: No Cardiac Disorders: No CVA: No COPD: No CHF: No Dementia: No Diabetes: No GI Disorders: No Disorders: No HTN: No Hypercholesterolemia: No Liver Disease: No Seizures: No Thyroid Disease: No - Surgical History Abdominal Surgery: No Appendectomy: No Cardiac Surgery: No Cholecystectomy: No Lung Surgery: No Neurologic Surgery: Yes (HERNIATED DISC SX 2013) Orthopedic Surgery: No - Immunization History Immunization Up to Date: Yes - Psycho Social/Smoking Cessation Hx Smoking Status: No Smoking History: Never smoked Have you smoked in the past 12 months: No Number of Cigarettes Smoked Daily: 0 Cigars Per Day: 0 Hx Alcohol Use: No Drug/Substance Use Hx: No Substance Use Type: None *Physical Exam - Vital Signs Last Vital Signs Temp Pulse Resp BP Pulse Ox 98.3 F 92 H 19 151/82 97 03/06/19 22:29 03/06/19 22:29 03/06/19 22:29 03/06/19 22:29 03/06/19 22:29 Medical Decision Making - Medical Decision Making 03/06/19 22:56 Patient is 54 year old male with no pmhx c/o URI symptoms x 3 days. Patient states dry cough, nose clogged, right ear pain, chest hurt/burning from coughing , throat irritated and sore. He took erythromycin 3 pills, Robitussin and water without relief. 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 Patient denies any fever, chills, nausea, vomiting. Symptoms consistent with URI, possibly with seasonal ALLERGY component. Will give Neb treatment cxr CXR neg for pneumonia I discussed the physical exam findings, ancillary test results and final diagnoses with the patient. I answered all of the patient's questions. The patient was satisfied with the care received and felt comfortable with the discharge plan and treatment plan. The Patient agrees to follow up with the primary care physician within 24-72 hours. Medication for treatment of symptoms went to pharmacy Discharge - Discharge Information Problems reviewed: Yes Clinical Impression/Diagnosis: Upper respiratory disease Condition: Stable Disposition: HOME - Additional Discharge Information Prescriptions: Albuterol Sulfate Inhaler - [Ventolin HFA Inhaler -] 2 inh PO Q4H #1 inh Cetirizine HCl [Zyrtec -] 10 mg PO DAILY #30 tablet Pseudoephedrine HCl [Sudafed] 30 mg PO QID #20 tablet - Follow up/Referral - Patient Discharge Instructions Patient Printed Discharge Instructions: DI for Viral Upper Respiratory Infection -- Adult Additional Instructions: Your Discharge Instructions: You must call primary care physician within 24 hours to arrange follow-up. Return to the Emergency Department with any new, persistent or worsening symptoms, for fever, chills, SOB, dizziness or any other concerning changes that may occur. - Post Discharge Activity Work/Back to School Note: Back to Work
[2019-03-06] MEDS ORDERED: ALBUTEROL SO4 2.5/IPRATROPIUM 0.5 INH SOL 3 ML VIAL.NEB. NEB ONE ×2 (23:02→23:03)
[2019-03-07] MEDS ORDERED: ALBUTEROL SO4 8 GM HFA INHALER IH PRN (00:05)
[2019-03-07] MEDS ORDERED: PSEUDOEPHEDRINE HCL 60 MG TABLET PO SCH (00:15)
[2019-03-07] MEDS ORDERED: LORATADINE 10 MG TABLET PO SCH (10:00)
== END 2019-03-07 00:16 | disposition home or self-care (01) ==
LOC: JER 22:18
DX: J06.9 Acute upper respiratory infection, unspecified (principal); B97.89 Other viral agents as the cause of diseases classified elsewhere
CPT/HCPCS: 71046-TC-FY; 99282-25

== ENCOUNTER 2019-03-28 17:10 | Emergency (ER) | payer OTHER ==
[2019-03-28 17:20] VITALS: BP 141/82; PULSE 84; TEMP 98.2; BMI 35.1
--- NOTE | 2019-03-28 18:44 | PDOC ---
History of Present Illness - General Chief Complaint: Cold Symptoms Stated Complaint: cough Time Seen by Provider: 03/28/19 17:51 - History of Present Illness Initial Comments: 03/28/19 18:41 54-year-old male without comorbidities presents for evaluation of cough x2 weeks. He self medicated with amoxicillin for 7 days 250 mg once a day without relief. No systemic symptoms no production in the cough Past History - Past Medical History Allergies/Adverse Reactions: Allergies Allergy/AdvReac Type Severity Reaction Status Date / Time No Known Allergies Allergy Verified 02/09/17 10:48 Home Medications: Ambulatory Orders Aspirin [ASA -] 81 mg PO DAILY tab.chew 08/11/16 Atorvastatin Ca [Lipitor] 10 mg PO HS #30 tablet 08/11/16 Levofloxacin [Levaquin] 750 mg PO DAILY #5 tablet 02/09/17 Ofloxacin Otic [Floxin Otic -] 10 drop OT DAILY #1 drops 02/09/17 Prednisone [Deltasone] 40 mg PO DAILY #8 tablet 02/09/17 Promethazine HCl/Codeine [Prometh-Codein 6.25-10 mg/5 ml] 5 ml PO Q6H PRN #2 oz MDD 4 02/09/17 Albuterol Sulfate Inhaler - [Ventolin HFA Inhaler -] 2 inh PO Q4H #1 inh Cetirizine HCl [Zyrtec -] 10 mg PO DAILY #30 tablet 03/07/19 Pseudoephedrine HCl [Sudafed] 30 mg PO QID #20 tablet 03/07/19 Anemia: No Asthma: No Cancer: No Cardiac Disorders: No CVA: No COPD: No CHF: No Dementia: No Diabetes: No GI Disorders: No Disorders: No HTN: No Hypercholesterolemia: No Liver Disease: No Seizures: No Thyroid Disease: No - Surgical History Abdominal Surgery: No Appendectomy: No Cardiac Surgery: No Cholecystectomy: No Lung Surgery: No Neurologic Surgery: Yes (HERNIATED DISC SX 2013) Orthopedic Surgery: No - Immunization History Immunization Up to Date: Yes - Psycho Social/Smoking Cessation Hx Smoking Status: No Smoking History: Never smoked Have you smoked in the past 12 months: No Number of Cigarettes Smoked Daily: 0 Cigars Per Day: 0 Information on smoking cessation initiated: No Hx Alcohol Use: No Drug/Substance Use Hx: No Substance Use Type: None Review of Systems - Review of Systems Constitutional: No: Chills, Diaphoresis, Fever, Malaise, Night Sweats Respiratory: Yes: Cough Neurological: No: Headache *Physical Exam - Vital Signs Last Vital Signs Temp Pulse Resp BP Pulse Ox 98.2 F 84 16 141/82 97 03/28/19 17:17 03/28/19 17:17 03/28/19 17:17 03/28/19 17:17 03/28/19 17:17 - Physical Exam Comments: 03/28/19 18:42 GENERAL: The patient is awake, alert, and fully oriented, in no acute distress. HEAD: Normal with no signs of trauma. EYES: sclera anicteric, conjunctiva clear. ENT: Ears normal NECK: Normal range of motion LUNGS: Breath sounds equal, clear to auscultation bilaterally. No wheezes, and no crackles. HEART: S1 and S2 without murmur, rub or gallop. ABDOMEN: Soft, nontender, normoactive bowel sounds. No guarding, no rebound. No masses. EXTREMITIES: Normal range of motion, no edema. No clubbing or cyanosis. No cords, erythema, or tenderness. NEUROLOGICAL: Cranial nerves II through XII grossly intact. Normal speech, normal gait. PSYCH: Normal mood, normal affect. SKIN: Warm, Dry, normal turgor, no rashes or lesions noted. 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 - Post Discharge Activity
--- NOTE | 2019-03-29 12:10 | EKG ---
Test Reason : Blood Pressure : / mmHG Vent. Rate : 069 BPM Atrial Rate : 069 BPM P-R Int : 164 ms QRS Dur : 100 ms QT Int : 392 ms P-R-T Axes : 062 069 050 degrees QTc Int : 420 ms NORMAL SINUS RHYTHM NORMAL ECG WHEN COMPARED WITH ECG OF 09-AUG-2016 15:15, T WAVE INVERSION NO LONGER EVIDENT IN INFERIOR LEADS Confirmed by Luís Mejía MD ([id number]) on 03/29/2019 12:09:47 PM Referred By: Confirmed By:Luís Mejía MD
== END 2019-03-28 18:48 | disposition home or self-care (01) ==
LOC: JERFT 17:10
DX: J40 Bronchitis, not specified as acute or chronic (principal)
CPT/HCPCS: 71046-TC-FY; 93005; 93010; 99282-25

== ENCOUNTER 2019-05-25 05:57 | Day surgery (SDC) | payer OTHER ==
[2019-05-23 16:07] VITALS: BMI 36.2
[2019-05-25] MEDS ORDERED: LIDOCAINE HCL 2% (20ML MULTI-DOSE VIAL) ONE (07:12)
[2019-05-25] MEDS ORDERED: BUPIVACAINE HCL 0.25% 125 MG/50 ML VIAL ONE (07:12)
[2019-05-25] MEDS ORDERED: MIDAZOLAM HCL 2 MG/2 ML SINGLE DOSE VIAL ONE (07:17)
[2019-05-25] MEDS ORDERED: SUCCINYLCHOLINE CHLORIDE 200 MG/10 ML SYRINGE ONE (07:17)
[2019-05-25] MEDS ORDERED: PROPOFOL 20 ML ONE (07:17)
[2019-05-25] MEDS ORDERED: LIDOCAINE HCL/PF 2% SDV 5ML VIAL ONE (07:40)
[2019-05-25] MEDS ORDERED: ceFAZolin SODIUM 1 GM VIAL ONE (07:46)
[2019-05-25] MEDS ORDERED: ONDANSETRON 4 MG/2 ML VIAL ONE (07:59)
[2019-05-25] MEDS ORDERED: DEXAMETHASONE SOD PHOSPHATE 4 MG/1 ML VIAL ONE (07:59)
[2019-05-25] MEDS ORDERED: KETOROLAC TROMETHAMINE 30 MG/1 ML VIAL ONE (07:59)
[2019-05-25 08:41] VITALS: TEMP 98.1
[2019-05-25] MEDS ORDERED: ONDANSETRON 4 MG/2 ML VIAL IVPUSH PRN (08:56)
[2019-05-25] MEDS ORDERED: ACETAMINOPHEN 325 MG TABLET (FP) PO PRN (08:56)
[2019-05-25 10:04] VITALS: BP 123/74; PULSE 64
--- NOTE | 2019-05-27 11:44 | OP ---
DATE OF OPERATION: 05/25/2019 PREOPERATIVE DIAGNOSIS: Left wrist mass. POSTOPERATIVE DIAGNOSIS: Left wrist mass. OPERATIVE PROCEDURE: Left wrist mass excision. SURGEON: Jamie Brewster MD ASSEMBLY SUPERVISOR: GARTH Tamayo ANESTHESIA: General. COMPLICATIONS: None. ESTIMATED BLOOD LOSS: Minimal. INDICATIONS FOR PROCEDURE: The patient is a 54-year-old male with the above findings indicated for operative treatment. Risks, benefits, and alternatives were discussed with the patient at least. Proper informed consent was obtained. DESCRIPTION OF PROCEDURE: After proper identification of patient and the correct operative site, patient was brought to the operating room and placed supine on the table, prominences well padded. General anesthesia was given. Intravenous antibiotics were given. Left upper extremity was prepped and draped in the usual sterile fashion. A well-padded tourniquet was placed with a sterile prep. Esmarch bandage used to exsanguinate the left upper extremity. Tourniquet was inflated to 250 mmHg. Curvilinear incision was made over the volar radial aspect of the wrist, which was the location of the mass. Incision was taken sharply through the skin with blunt and sharp dissection of subcutaneous tissues. Mass was found to be adherent in scar tissue, and incision was extended slightly proximally and distally to obtain control of the area and adjacent structures in healthy tissue. Blunt and sharp dissection were brought through the subcutaneous tissues identifying the mass as a cystic structure emanating from the radiocarpal joint. The mass was excised in whole involving the stalk and sent for pathologic evaluation. Neurovascular structures were carefully protected. The tourniquet was released. Hand was well perfused, and the radial artery remained intact. Wound was irrigated and repaired with 5-0 nylon suture. Sterile dressings were applied. Patient was reversed from anesthesia and brought to recovery in stable condition. Luís Mcclellan, the assistant account executive, was integral throughout the procedure. Procedure could not have been performed without a skilled operative assistant account executive. JAMIE BREWSTER M.D. [id number]
--- NOTE | 2019-05-30 14:04 | PATH ---
Surgical Pathology Report Patient Name: DARIEN TINSLEY Med. Rec. #: [id number] /Age/Gender: 1965 (Age: 54) / M Account: [id number] [facility] Taken: 05/25/2019 Received: 05/25/2019 Reported: 05/30/2019 Physicians: Jamie Burris M.D. Specimen(s) Received LEFT WRIST MASS Clinical History Left wrist mass Final Diagnosis WRIST, LEFT, MASS, EXCISION: GANGLION CYST. Electronically Signed Lilo Cota M.D. Gross Description Received in formalin labeled "left wrist mass," is a 1.1 x 0.7 x 0.7 cm martins portion of soft tissue, consistent with a cystic structure. Sectioning reveals clear mucinous material within the lumen. The specimen is trisected and entirely submitted in one cassette. 05/27/201905/27/2019
== END 2019-05-25 10:07 | disposition home or self-care (01) ==
LOC: FASU 05:57
PROVIDERS: ATTEND Orthopaedic Surgery Hand Surgery
PROC: 0LB60ZZ Excision of Left Lower Arm and Wrist Tendon, Open Approach (ICD-10-PCS; principal; 2019-05-25 07:50)
DX: M67.432 Ganglion, left wrist (principal)
CPT/HCPCS: 88304-TC; 94760

== ENCOUNTER 2019-06-06 19:10 | Emergency (ER) | payer OTHER ==
--- NOTE | 2019-06-06 19:42 | PDOC ---
Rapid Medical Evaluation Time Seen by Provider: 06/06/19 19:39 Medical Evaluation: Allergies Allergy/AdvReac Type Severity Reaction Status Date / Time No Known Allergies Allergy Verified 05/25/19 06:31 06/06/19 19:39 CC: subjective fevers, sore throat, cough, generalized weakness, headache x4 days PE: no focal findings Orders: tylenol Patient will proceed to ER for further evaluation. Discharge Disposition - Diagnosis Upper respiratory disease - Referrals Referrals: Shari Larios MD [Primary Care Provider] - - Patient Instructions - Post Discharge Activity
[2019-06-06 19:44] VITALS: BP 128/73; PULSE 86; TEMP 98.5; BMI 35.7
--- NOTE | 2019-06-06 20:38 | PDOC ---
History of Present Illness - General Chief Complaint: Cold Symptoms Stated Complaint: Cold Symptoms Time Seen by Provider: 06/06/19 19:39 - History of Present Illness Initial Comments: 06/06/19 20:37 54-year-old male without comorbidities returns for reevaluation of cough. He finished a course of antibiotics which was prescribed to him at last emergency room visit and has not followed up with pulmonology. No fevers he has intermittent night sweats Past History - Past Medical History Allergies/Adverse Reactions: Allergies Allergy/AdvReac Type Severity Reaction Status Date / Time No Known Allergies Allergy Verified 06/06/19 19:44 Home Medications: Ambulatory Orders Guaifenesin Dm [Mucinex Dm -] 1 tab PO BID #60 tab.er.12h 06/06/19 Anemia: No Asthma: No Cancer: No Cardiac Disorders: No CVA: No COPD: No CHF: No Dementia: No Diabetes: No GI Disorders: No Disorders: No HTN: No Hypercholesterolemia: No Liver Disease: No Seizures: No Thyroid Disease: No - Surgical History Abdominal Surgery: No Appendectomy: No Cardiac Surgery: No Cholecystectomy: No Lung Surgery: No Neurologic Surgery: Yes (HERNIATED DISC SX 2013) Orthopedic Surgery: No - Immunization History Immunization Up to Date: Yes - Psycho Social/Smoking Cessation Hx Smoking Status: No Smoking History: Never smoked Have you smoked in the past 12 months: No Number of Cigarettes Smoked Daily: 0 Cigars Per Day: 0 Information on smoking cessation initiated: No Hx Alcohol Use: No Drug/Substance Use Hx: No Substance Use Type: None Hx Substance Use Treatment: No Review of Systems - Review of Systems Constitutional: Yes: Night Sweats. No: Fever Respiratory: Yes: Cough *Physical Exam - Vital Signs Last Vital Signs Temp Pulse Resp BP Pulse Ox 98.5 F 86 17 128/73 98 06/06/19 19:41 06/06/19 19:41 06/06/19 19:41 06/06/19 19:41 06/06/19 19:41 - Physical Exam 06/06/19 20:37 GENERAL: The patient is awake, alert, and fully oriented, in no acute distress. HEAD: Normal with no signs of trauma. EYES: sclera anicteric, conjunctiva clear. ENT: Ears normal tympanic membranes normal oropharynx clear uvula midline NECK: Normal range of motion LUNGS: Breath sounds equal, clear to auscultation bilaterally. No wheezes, and no crackles. HEART: S1 and S2 without murmur, rub or gallop. ABDOMEN: Soft, nontender, normoactive bowel sounds. No guarding, no rebound. No masses. EXTREMITIES: Normal range of motion, no edema. No clubbing or cyanosis. No cords, erythema, or tenderness. NEUROLOGICAL: Cranial nerves II through XII grossly intact. Normal speech, normal gait. PSYCH: Normal mood, normal affect. SKIN: Warm, Dry, normal turgor, no rashes or lesions noted. Medical Decision Making - Medical Decision Making 06/06/19 20:37 Patient with a benign examination with persistent cough will treat the cough with Mucinex and encouraged pulmonology follow-up patient is in agreement with the plan. I will hold off on antibiotics for now. Discharge - Discharge Information Problems reviewed: Yes Clinical Impression/Diagnosis: Upper respiratory disease Condition: Stable Disposition: HOME - Admission No - Additional Discharge Information Prescriptions: Guaifenesin Dm [Mucinex Dm -] 1 tab PO BID #60 tab.er.12h - Follow up/Referral Referrals: Shari Larios MD [Staff Physician] - - Patient Discharge Instructions Additional Instructions: Continue with your regular medication as scheduled and the Mucinex for cough. Without fail follow-up with pulmonology in 2 to 3 days for further evaluation and treatment options. Return to the emergency room for worsening symptoms. - Post Discharge Activity
== END 2019-06-06 20:52 | disposition home or self-care (01) ==
LOC: JERFT 19:10
DX: J06.9 Acute upper respiratory infection, unspecified (principal)
CPT/HCPCS: 99281-25

== ENCOUNTER 2023-04-01 05:30 | Emergency (ER) | payer OTHER ==
[2023-04-01 05:38] VITALS: BMI 35.4
[2023-04-01 08:47] VITALS: BP 114/67; PULSE 80; RESP 14; TEMP 97.2
== END 2023-04-01 10:59 | disposition home or self-care (01) ==
LOC: JER 05:30
DX: R09.81 Nasal congestion (principal); R09.89 Other specified symptoms and signs involving the circulatory and respiratory systems; J02.9 Acute pharyngitis, unspecified; R05.9 Cough, unspecified; R50.9 Fever, unspecified; R42 Dizziness and giddiness; B97.4 Respiratory syncytial virus as the cause of diseases classified elsewhere; Z20.822 Contact with and (suspected) exposure to COVID-19
CPT/HCPCS: 0241U-QW; 99283-25

== ENCOUNTER 2023-04-12 06:21 | Emergency (ER) | payer OTHER ==
[2023-04-12 06:38] VITALS: BP 143/81; PULSE 82; RESP 18; TEMP 98.5; BMI 35.8
[2023-04-12] MEDS ORDERED: FAMOTIDINE 20 MG TABLET PO ONE (08:09)
[2023-04-12] MEDS ORDERED: ACETAMINOPHEN 325 MG TABLET (FP) PO ONE (08:13)
[2023-04-12] MEDS ORDERED: FAMOTIDINE 20 MG TABLET ONE (08:27)
[2023-04-12] MEDS ORDERED: ACETAMINOPHEN 325 MG TABLET (FP) ONE (08:27)
[2023-04-12 08:46] LABS: EOS % 1.3 % (0-4.5); HEMATOCRIT 40.4 % (35.4-49); HEMOGLOBIN 13.3 GM/dL (11.7-16.9); LYMPH % 21.1 % (8-40); MCH 28.1 pg (25.7-33.7); MEAN CELL VOLUME 85.4 fl (80-96); MEAN PLT VOLUME 7.6 fl (7.5-11.1); MONO % 6.2 % (3.8-10.2); NEUT % 70.4 % (42.8-82.8); PLATELET COUNT 267 10^3/uL (134-434); RBC 4.74 M/mm3 (4.00-5.60); RDW 13.9 % (11.9-15.9); WHITE BLOOD COUNT 12.3 K/mm3 (4.0-10.0)
[2023-04-12 09:16] LABS: CALCIUM 8.7 mg/dL (8.5-10.1)
[2023-04-12 09:18] LABS: ALBUMIN 3.3 g/dl (3.4-5.0); BLOOD UREA NITROGEN 15.9 mg/dL (7-18); MAGNESIUM 2.2 mg/dL (1.8-2.4)
[2023-04-12 09:20] LABS: CREATININE 0.9 mg/dL (0.55-1.3)
[2023-04-12 09:22] LABS: BILIRUBIN,TOTAL 0.4 mg/dL (0.2-1); TOT PROT 6.4 g/dl (6.4-8.2)
== END 2023-04-12 10:30 | disposition home or self-care (01) ==
LOC: JER 06:21
DX: J02.9 Acute pharyngitis, unspecified (principal); R51.9 Headache, unspecified; R05.1 Acute cough; Z20.822 Contact with and (suspected) exposure to COVID-19
CPT/HCPCS: 0241U-QW; 36415; 71046-TC-FY; 80053; 83735; 84484; 85025; 93005; 93010; 99285-25